=== PATIENT | male | born 1965 | race Two or more races ===

== ENCOUNTER → 2017-10-05 | Outpatient (CLI) | payer BC ==
[~2017-10-05] MED LIST: CELE200C PO; ESZO3TAB28 PO; LISI-170 PO; MIRT15TA4 PO; MULT-516 PO; SYMBICORT INH
[2017-10-05 08:42] LABS: HEMATOCRIT 51.8 % (39.2-51.8); HEMOGLOBIN 17.9 g/dL (13.7-18.0); WHITE BLOOD COUNT 6.1 x10^3/uL (3.4-10)
[2017-10-05 08:51] LABS: ASPARTATE AMINO TRANSFERASE 36 U/L (15-37); BLOOD UREA NITROGEN 29 mg/dL (7-18)
== END ==
LOC: STAR 07:40
PROVIDERS: ATTEND Neurological Surgery
DX: Z01.818 Encounter for other preprocedural examination (principal); R94.31 Abnormal electrocardiogram [ECG] [EKG]; M54.16 Radiculopathy, lumbar region; R06.02 Shortness of breath; I10 Essential (primary) hypertension; J98.6 Disorders of diaphragm
CPT/HCPCS: 36415; 71020; 80053; 85025; 85610; 85730; 93005

== ENCOUNTER 2017-10-17 05:57 | Day surgery (SDC) | payer BC, OTHER ==
[2017-10-05 08:09] VITALS: BP 110/80
[~2017-10-17] VITALS: Ht 177.8 cm; Wt 101.5 kg
[2017-10-17] MEDS ORDERED: BUPIVACAINE/PF 0.5% ONE (06:59)
[2017-10-17] MEDS ORDERED: THROMBIN 5,000 UNIT VIAL TP ONE (06:59)
[2017-10-17] MEDS ORDERED: EPINEPHRINE 1 MG/ML, 1ML ONE (07:00)
[2017-10-17] MEDS ORDERED: BACITRACIN 50,000 UNIT ONE (07:00)
[2017-10-17] MEDS ORDERED: BACITRACIN OINT 500U/GM, 15 GM ONE (07:00)
[2017-10-17] MEDS ORDERED: LACTATED RINGERS 1,000 ML IV SCH (07:07)
[2017-10-17 07:10] VITALS: BP 110/80
[2017-10-17] MEDS ORDERED: LIDOCAINE 1%, 2ML SQ PRN (07:30)
[2017-10-17] MEDS ORDERED: KETAMINE 10 MG/ML, 20ML ONE (07:59)
[2017-10-17] MEDS ORDERED: MIDAZOLAM 1 MG/ML, 2ML ONE (08:00)
[2017-10-17] MEDS ORDERED: FENTANYL PF 100 MCG/2ML ONE ×3 (08:00→11:37)
[2017-10-17] MEDS ORDERED: ROCURONIUM 10 MG/ML,10ML ONE (08:05)
[2017-10-17] MEDS ORDERED: PROPOFOL 10 MG/ML, 20ML ONE (08:05)
[2017-10-17] MEDS ORDERED: SUCCINYLCHOLINE 20 MG/ML, 10ML ONE (08:05)
[2017-10-17] MEDS ORDERED: LIDOCAINE-MPF 2% ,5ML ONE (08:05)
[2017-10-17] MEDS ORDERED: DEXAMETHASONE 4 MG/ML, 1ML ONE (09:19)
[2017-10-17] MEDS ORDERED: CEFAZOLIN 1,000 MG ONE (09:19)
[2017-10-17] MEDS ORDERED: LIDOCAINE 4%, 4 ML SYR/CANN TP ONE (09:19)
[2017-10-17] MEDS ORDERED: EPHEDRINE 50 MG/ML, 1ML ONE (09:19)
[2017-10-17] MEDS ORDERED: VASOPRESSIN 20 UNIT/ML, 1ML ONE (09:19)
[2017-10-17] MEDS ORDERED: ONDANSETRON 2MG/ML, 2ML ONE (09:19)
[2017-10-17] MEDS ORDERED: PHENYLEPHRINE 10 MG/ML ONE (09:19)
[2017-10-17] MEDS ORDERED: OXYcodone 5 MG/5 ML ORAL.SOL UDC PO PRN (10:30)
[2017-10-17] MEDS ORDERED: ACETAMINOPHEN 325 MG TABLET PO PRN (10:30)
[2017-10-17] MEDS ORDERED: DIAZEPAM 5 MG/ML, 2ML IVPush PRN (10:30)
[2017-10-17] MEDS ORDERED: HYDROmorphone 1 MG/ML, 1ML IV PRN (10:30)
[2017-10-17] MEDS ORDERED: PROMETHAZINE 25 MG/ML, 1ML IV PRN (10:30)
[2017-10-17] MEDS ORDERED: methylPREDNISolone *ACETATE* 40 MG/ML ONE (10:41)
[2017-10-17] MEDS ORDERED: ACETAMINOPHEN 650 MG/20.3 ML UDC ONE (11:15)
[2017-10-17] MEDS ORDERED: OXYcodone 5 MG/5 ML ORAL.SOL UDC ONE (11:15)
[2017-10-17] MEDS: FENTANYL PF 100 MCG/2ML IV PRN ×2 (11:38→11:58)
== END 2017-10-17 14:15 | disposition home or self-care (01) ==
LOC: OUT 05:57
PROVIDERS: ATTEND Neurological Surgery
DX: M51.16 Intervertebral disc disorders with radiculopathy, lumbar region (principal); I10 Essential (primary) hypertension; G43.909 Migraine, unspecified, not intractable, without status migrainosus; Z98.890 Other specified postprocedural states
CPT/HCPCS: 36415; 63030; 72100; 86850; 86900; J0171; J0330; J0690; J1030; J1100; J2250; J2370; J2405; J2704; J3010; J3490; J7120

== ENCOUNTER → 2019-01-23 | Outpatient (CLI) | payer BC | END | disposition home or self-care (01) | LOC: CFH 06:56 | PROVIDERS: ATTEND Nurse Practitioner Family | DX: M77.9 Enthesopathy, unspecified (principal) ==